=== PATIENT | male | born 1990 | race Caucasian/White ===

== ENCOUNTER 2017-07-04 11:53 | Day surgery (SDC) | payer BC ==
[2017-07-01 09:18] VITALS: BMI 45439.5
--- NOTE | 2017-07-04 16:22 | OP ---
DATE OF PROCEDURE: 07/04/2017 GASTROINTESTINAL ENDOSCOPY NOTE SURGEON: Delbert Beltran M.D. MACHINE TESTER SURGEON: None. PROCEDURE: Esophagogastroduodenoscopy, diagnostic. INDICATIONS: 1. Globus sensation. 2. Chronic gastroesophageal reflux disease symptoms. MEDICATIONS: See anesthesia record. FINDINGS: After discussion of the risks, benefits, and alternatives of the procedure, informed cons ent was obtained and witnessed. Pre-endoscopic cardiopulmonary examination was satisfactory. Timeo ut was performed before sedation was achieved. Sedation was achieved with anesthesia assistance in the endoscopy unit. A Pentax adult upper endoscope was placed into the oropharynx and passed throug h the cricopharyngeus under direct visualization. The esophageal mucosa appeared normal throughout. The Z-line was located at 39 cm from the incisors and was variable, but there was no evidence of d istal esophagitis. No evidence of Marie's mucosa. There was no evidence of any esophageal strict ure, no evidence of esophageal mucosal abnormality. The endoscope was advanced into the stomach. F orward and retroflexed views of the entire gastric mucosa were obtained. The gastric mucosa appeare d normal throughout. The upper endoscope was passed through a normal-appearing pylorus and into the first and second portions of the duodenum, which also appeared normal. The upper endoscope was the n completely withdrawn and the patient allowed to recover. The patient tolerated the procedure well . There were no immediate post-procedure complications. IMPRESSION: 1. Normal esophagogastroduodenoscopy. 2. The patient's globus sensation is likely psychogenic in origin, related to his anxiety. RECOMMENDATIONS: 1. The patient can continue with his daily PPI for GERD symptoms. 2. Anxiety management per primary care provider. 3. The patient can follow up in the GI clinic as needed.
== END 2017-07-04 15:24 | disposition home or self-care (01) ==
LOC: SDC 11:53
PROVIDERS: ATTEND Internal Medicine
PROC: 0DJ08ZZ Inspection of Upper Intestinal Tract, Via Natural or Artificial Opening Endoscopic (ICD-10-PCS; principal; 2017-07-04)
DX: F45.8 Other somatoform disorders (principal); K21.9 Gastro-esophageal reflux disease without esophagitis; E66.9 Obesity, unspecified; F32.9 Major depressive disorder, single episode, unspecified; F41.9 Anxiety disorder, unspecified; Z79.899 Other long term (current) drug therapy; Z68.42 Body mass index [BMI] 45.0-49.9, adult; Z90.89 Acquired absence of other organs; Z86.59 Personal history of other mental and behavioral disorders